=== PATIENT | female | born 1995 | race Caucasian/White ===

== ENCOUNTER → 2023-08-17 08:11 | Outpatient (CLI) | payer OTHER, SELFPAY ==
--- NOTE | 2023-08-17 | DI.MRI.S_ITS ---
PROCEDURE: MR WRIST LT W CON INDICATIONS: LEFT WRIST PAIN TECHNIQUE: After the administration of 3-4 mL of dilute intra-articular Gadolinium contrast into the radiocarpal compartment, coronal T1 spin echo with fat saturation and T2 fast spin echo with fat saturation, axial T1 spin echo and T2 fast spin echo with fat saturation, sagittal T1 spin echo with and without fat saturation through the wrist. COMPARISON: [facility], , [place] WRIST INJECTION MR/CT LT, 08/17/2023, 9:43. FINDINGS: Image quality: Excellent. Bones and cartilage: The carpal bones are normally aligned. No bone marrow contusions or fractures. No evidence for avascular necrosis. Carpal ligaments: The scapholunate and lunotriquetral ligaments appear intact, without gadolinium extravasation into the mid-carpal compartment. On sagittal images, the pisohamate ligament appears intact. Triangular fibrocartilage complex: Small amount of noncommunicating fluid is seen near the ulnar attachment of the triangular fibrocartilage, which may indicate focal partial tearing. No full-thickness triangular fibrocartilage tear is seen. No gadolinium extravasation into the distal radioulnar joint. Tendons and soft tissues: Mild extravasation of contrast material at the dorsal aspect of the wrist related to the arthrogram injection. The carpal tunnel structures appear normal, including the median nerve. The ulnar nerve appears normal within Guyon's canal. [id number] fluid within the 2nd and 3rd extensor compartments is most likely related to the arthrogram injection. All six extensor tendon compartments demonstrate normal morphology. No soft tissue ganglion cysts. IMPRESSION: 1. Focal noncommunicating fluid signal at the ulnar attachments of the triangular fibrocartilage may represent partial tearing. No full-thickness triangular fibrocartilage tear. 2. No acute trabecular bone injury. No extravasation of injected intra-articular contrast material into the distal radioulnar joint or midcarpal joint. Visualized tendons are intact. Approved by: Getachew Laureano M.D. on 08/17/2023 at 14:34
--- NOTE | 2023-08-17 | DI.RAD.S_ITS ---
PROCEDURE: [place] WRIST INJECTION MR/CT LT INDICATIONS: LEFT WRIST PAIN COMPARISON: [facility], MR, MR WRIST LT W CON, 08/17/2023, 8:59. TECHNIQUE: After informed consent had been obtained, the wrist was examined fluoroscopically, and a site chosen for injection of the radiocarpal compartment from a dorsal approach. Skin was prepped and draped in a sterile fashion and 1% lidocaine infiltrated from the skin down to the articular surface. A hypodermic needle was then introduced into the articular space and a modest amount of contrast medium was instilled confirming intra-articular needle tip placement. This was followed by approximately 4 mL of a dilute gadolinium solution. Needle was removed and dressing was applied. The patient experienced no complications throughout the procedure and left the fluoroscopic suite in no apparent distress. FINDINGS: A single fluoroscopic spot image demonstrates intra-articular location to injected iodinated contrast. IMPRESSION: Successful fluoroscopic-guided administration of dilute Gadolinium solution for wrist MR arthrogram. Dictated by: Paul Sanchez M.D. on 08/17/2023 at 11:02 Approved by: Paul Sanchez M.D. on 08/17/2023 at 11:02
[2023-08-17] MEDS: SODIUM CHLORIDE 0.9 % 20 ML VIAL IV (09:05)
== END ==
PROVIDERS: Referring Provider Orthopaedic Surgery; Visit Provider Orthopaedic Surgery
DX: M25.532 Pain in left wrist (principal)
CPT/HCPCS: 20605; 73222; 77002

== ENCOUNTER 2024-08-02 11:23 | Emergency (ER) | payer OTHER, SELFPAY ==
[2024-08-02 11:30] VITALS: BP 137/90; PULSE 83; RESP 16; TEMP 37.1; O2SAT 99; BMI 26.6
--- NOTE | 2024-08-02 11:39 | ED_ITS ---
HPI - Abdominal Pain <Alberto Aguilera PA-C - Last Filed: 08/02/24 15:36> General Chief Complaint: Abdominal Pain Stated Complaint: lower abd pain Time Seen by Provider: 08/02/24 11:38 Source: patient Mode of arrival: Ambulatory History of Present Illness HPI narrative: This is a 28-year-old female presenting to the emergency department due to right lower quadrant pain for the last 7 days. She states that initially the pain was intermittent and waxing and waning but now it is more constant moderate pain to the right lower quadrant. Denies any dysuria, urinary frequency, hematuria, vaginal discharge, nausea, fevers, vomiting, or any other concerning signs or symptoms. Has a IUD in place and very rarely has menses. No history of abdominal surgeries and no pertinent medical history. Related Data Previous Rx's Medication Instructions Recorded amoxicillin 875 mg-potassium 1 tab PO BID #28 tabs 08/02/24 clavulanate 125 mg tablet Allergies Allergy/AdvReac Type Severity Reaction Status Date / Time No Known Drug Allergies Allergy Verified 08/02/24 11:35 Review of Systems <Alberto Aguilera PA-C - Last Filed: 08/02/24 15:36> Review of Systems Narrative: GENERAL: Denies chills, fatigue, malaise, fever, sweats. HEENT: Denies sinus pain, ear pain, sore throat, difficulty swallowing, dizziness. RESPIRATORY: Denies dyspnea, cough, wheezing, hemoptysis, sputum. CARDIOVASCULAR: Denies chest pain, palpitations, orthopnea, edema, GASTROINTESTINAL: Reports right lower quadrant abdominal pain Denies nausea, vomiting, , diarrhea, constipation, melena. : Denies dysuria, frequency, incontinence, hematuria, urinary retention. MUSCULOSKELETAL: denies weakness, joint pain, or bony pain SKIN: Denies rash, skin lesions, or other NEUROLOGIC: Denies weakness, headache, numbness, change in speech, confusion, seizures, incoordination. PSYCHIATRIC: No concerning psychosocial issues. 12 point review of systems is negative except for those stated above Patient History <KORY Silverio Last Filed: 08/02/24 15:36> Social History Smoking Status: Never smoker Smoking Status: Never smoker Exam <KORY Silverio Last Filed: 08/02/24 15:36> Narrative Exam Narrative: GENERAL: Well-developed patient, in mild distress. HEAD: Atraumatic. Normocephalic. EYES: Pupils equal round and reactive. Extraocular motions intact. No scleral icterus. No injection or drainage. ENT: Nose without bleeding, purulent drainage. Throat without erythema, tonsillar hypertrophy or exudate. Airway patent. NECK: Trachea midline. Non tender EXTREMITIES: No edema or joint tenderness. NEURO: AOx3. SKIN: No rash or erythema of visible areas Abdomen: Tenderness to palpation to the right lower quadrant, no guarding, nondistended Initial Vital Signs Initial Vital Signs: Vital Signs Temperature 98.8 F 08/02/24 11:30 Pulse Rate 83 08/02/24 11:30 Respiratory Rate 16 08/02/24 11:30 Blood Pressure 137/90 08/02/24 11:30 Pulse Oximetry 99 08/02/24 11:30 Oxygen Delivery Method Room Air 08/02/24 11:30 <DO Beba May Last Filed: 08/02/24 15:53> Initial Vital Signs Initial Vital Signs: Vital Signs Temperature 98.8 F 08/02/24 11:30 Pulse Rate 83 08/02/24 11:30 Respiratory Rate 16 08/02/24 11:30 Blood Pressure 137/90 08/02/24 11:30 Pulse Oximetry 99 08/02/24 11:30 Oxygen Delivery Method Room Air 08/02/24 11:30 Course <Alberto Aguilera PA-C - Last Filed: 08/02/24 15:36> Orders Ordered: ED Orders 08/02/24 11:44 CRP [C-Reactive Protein Quant] Stat Complete Blood Count AUTO DIFF Stat Comprehensive Metabolic Panel Stat Lipase Stat 08/02/24 12:19 CT abdomen pelvis w con Stat 08/02/24 12:21 US pelvic complete Stat Discontinued Medications Ceftriaxone Sodium (Ceftriaxone 2,000 Mg Vial) 1,000 mg IM NOW ONE Stop: 08/02/24 15:30 Last Admin: 08/02/24 15:47 Dose: 1,000 mg Documented By: NIC Vital Signs Vital signs: Vital Signs - 8 hr 08/02/24 11:30 Temperature 98.8 F Pulse Rate 83 Respiratory Rate 16 Blood Pressure 137/90 Pulse Oximetry 99 Oxygen Delivery Method Room Air <DO Beba May Last Filed: 08/02/24 15:53> Orders Ordered: ED Orders 08/02/24 11:44 CRP [C-Reactive Protein Quant] Stat Complete Blood Count AUTO DIFF Stat Comprehensive Metabolic Panel Stat Lipase Stat 08/02/24 12:19 CT abdomen pelvis w con Stat 08/02/24 12:21 US pelvic complete Stat Discontinued Medications Ceftriaxone Sodium (Ceftriaxone 2,000 Mg Vial) 1,000 mg IM NOW ONE Stop: 08/02/24 15:30 Last Admin: 08/02/24 15:47 Dose: 1,000 mg Documented By: DKBridget Vital Signs Vital signs: Vital Signs - 8 hr 08/02/24 11:30 Temperature 98.8 F Pulse Rate 83 Respiratory Rate 16 Blood Pressure 137/90 Pulse Oximetry 99 Oxygen Delivery Method Room Air MDM - Abdominal Pain <Alberto Aguilera PA-C - Last Filed: 08/02/24 15:36> Lab Data 08/02/24 11:44 08/02/24 11:44 Labs: Lab Results 08/02/24 Range/Units 11:44 WBC 8.0 (4.5-11.0) X10^3/uL RBC 5.21 H (4.0-5.2) X10^6/uL Hgb 15.6 (12.0-16.0) g/dL Hct 46.6 H (36-46) % MCV 89.5 (80-100) fL MCH 29.9 (26-34) PG MCHC 33.4 (30-36) % RDW 13.2 (11.6-14.8) % Plt Count 229 (150-400) X10^3/uL Neut % (Auto) 75.0 (50-75) % Lymph % (Auto) 16.2 L (25-40) % Pitt % (Auto) 6.3 (3-14) % Eos % (Auto) 2.0 (2-4) % Baso % (Auto) 0.5 (0-2) % Neut # (Auto) 6000 (7143-0875) /uL Lymph # (Auto) 1300 (6382-5580) /uL Pitt # (Auto) 500 (0-900) /uL Eos # (Auto) 200 (0-450) /uL Baso # (Auto) 0 (0-100) /uL Sodium 137 (137-145) mmol/L Potassium 3.8 (3.4-5.1) mmol/L Chloride 107 (98-107) mmol/L Carbon Dioxide 22 (22-32) mmol/L BUN 11 (7-17) mg/dL Creatinine 0.71 (0.52-1.04) mg/dL Estimated GFR > 60 (>60) mL/min BUN/Creatinine Ratio 15.5 (6-22) Glucose 93 (70-100) mg/dL Calcium 9.4 (8.4-10.2) mg/dL Total Bilirubin 0.7 (0.2-1.3) mg/dL AST 28 (14-36) IU/L ALT 24 (<35) IU/L Alkaline Phosphatase 54 (38-126) U/L C-Reactive Protein < 0.5 (<1.0) mg/dL Total Protein 7.3 (6.3-8.2) g/dL Albumin 4.5 (3.5-5.0) g/dL Globulin 2.8 (1.7-4.1) g/dL Albumin/Globulin Ratio 1.6 (1.0-2.8) Lipase 38 (23-300) U/L Point of care testing: Point of Care Testing Test Results Negative Urine Dip Bedside Urine Glucose Negative Bedside Urine Bilirubin - Negative Bedside Urine Ketone + 15 Urine Specific [place] 1.025 Bedside Urine Occult Blood - Negative Bedside Urine pH 6.0 Bedside Urine Protein - Negative Bedside Urine Urobilinogen - Negative Bedside Urine Nitrite - Negative Bedside Urine Leukocytes - Negative Esterase Imaging Data CT scan - abdomen/pelvis: Radiologist's Impression: [place] [address] CT Scan Report Signed Patient: Veronika Harris MR#: [id number] : 1995 Acct:[id number] Age/Sex: 28 / F Date of Service: 08/02/24 Loc: ED Accession Number: [id number] Procedure: CT abdomen pelvis w con Ordering Provider: Alberto Aguilera PA-C PROCEDURE: CT ABDOMEN PELVIS W CON INDICATIONS: RLQ pain TECHNIQUE: After the administration of intravenous contrast, axial sections acquired from the lung bases to the pubic symphysis. Coronal and sagittal reformats were performed. For radiation dose reduction, the following was used: automated exposure control, adjustment of mA and/or kV according to patient size. COMPARISON: [facility], , [place] PELVIC COMPLETE, 08/02/2024, 12:00. FINDINGS: Image quality: Diagnostic. Lower Chest: No significant findings. ABDOMEN: Liver: No solid mass. Gallbladder: No radiopaque gallstones or wall thickening. Biliary ducts: No biliary dilation. Pancreas: No ductal dilation. Spleen: Size is within normal limits. Adrenal Glands: No adrenal nodules. Kidneys and Ureters: No hydronephrosis. No solid mass. No complex renal cystic lesion which requires follow up. Stomach and Bowel: Normal colonic caliber, without significant wall thickening. Borderline predominantly fluid appendix with tiny air present near its entrance into the cecum. It measures up to 7.6 mm, but is predominantly under 6 mm. This may potentially represent very earliest findings of acute appendicitis, or may be a normal appendix. Peritoneum: No abnormal intraperitoneal fluid. No free air. Ventral Wall: No significant ventral hernia. Abdominal Nodes: No retroperitoneal or mesenteric adenopathy by size criteria. Vessels: Aorta and inferior vena cava are normal in size. PELVIS: Pelvic Organs: IUD. Mild to moderate pelvic ascites. This is greater than physiologic. On the ultrasound from the same date, the fluid was noted to have internal echoes. The fluid is minimally dense by Hounsfield measurements, measuring 22.6 Hounsfield units posteriorly, potentially indicating a small amount of hemorrhage within the fluid. Adnexae are unremarkable. Bladder: No bladder wall thickening, accounting for underdistention. Pelvic Nodes: No enlarged lymph nodes. Miscellaneous: No inguinal hernias are seen. Bones: No aggressive osseous abnormality. IMPRESSION: 1. The appendix may potentially demonstrate very early signs of acute appendicitis. Or, it may simply be a uninflamed appendix with predominantly fluid. 2. Greater than expected fluid in the pelvis, potentially representing evidence of ruptured ovarian cyst hemorrhage. There is debris within the fluid. Density is at the upper limits of normal for water density. 3. IUD. Comment: Findings were discussed with TOM Silverio, the ordering clinician, on 08/02/2024 at 1415 hours. Consider follow-up CT examination if symptoms progress. US - PHOTOCOPIER TECHNICIAN: Radiologist's Impression: [address] [address] Ultrasound Report Signed Patient: Veronika Harris MR#: [id number] : 1995 Acct:[id number] Age/Sex: 28 / F Date of Service: 08/02/24 Loc: ED Accession Number: [id number] Procedure: US pelvic complete Ordering Provider: Alberto Aguilera PA-C PROCEDURE: US PELVIC COMPLETE INDICATIONS: RIGHT PELVIC PAIN TECHNIQUE: Real-time scanning was performed of the pelvic organs, with image documentation. Additional endovaginal scanning was necessary due to incomplete visualization of the adnexal and endometrial structures by transabdominal scanning. COMPARISON: None. FINDINGS: Uterus: Uterus is anteverted and normal in size at 8.1 x 3.3 x 5.1 cm. The myometrium is homogeneous. The endometrium measures 4.3 mm combined thickness. IUD in satisfactory position Ovaries: The right ovary measures 4.2 x 4.1 x 1.8 cm, with a calculated ovarian volume of 15.9 cc. The left ovary measures 2.3 x 2.0 x 1.8 cm, with a calculated ovarian volume of 4.3 cc. The ovaries have a normal sonographic appearance. Less than 12 follicles can be seen in each ovary. No adnexal masses are seen. There is normal duplex intra-ovarian flow bilaterally. Other: There is greater than physiologic fluid present in the cul-de-sac with internal echoes present within a likely representing products of hemorrhage, suggestion possible recent rupture of an ovarian cyst. IMPRESSION: Greater than physiologic pelvic fluid with internal echoes suggests possible hemorrhage from a ruptured ovarian cyst. Ovaries are unremarkable. IUD in satisfactory position. We strive to produce accurate, complete, and clear reports of imaging services. To assist us in improving patient care, this report was composed using standard report templates and voice recognition software. Therefore, it may contain abnormal punctuation, insertions and/or omissions. Occasional wrong-word or sound-alike substitutions may occur. Though we review the report and make efforts to correct it, we do recommend that the report be read carefully in proper context to recognize any text inaccuracies. Dictated by: Deandre Goddard M.D. on 08/02/2024 at 13:50 Approved by: Deandre Goddard M.D. on 08/02/2024 at 14:03 [facility] Narrative Medical decision making narrative: ED course: This is a 20-year-old female presenting to the emergency department due to right lower quadrant pain. Imaging showed a ruptured ovarian cyst as well as possible early appendicitis. This was discussed with the on-call general surgeon, Dr. Bowie, who evaluated the patient and recommended Rocephin IM as well as 2 weeks of oral Augmentin, 875 b.i.d.. Lab work otherwise reassuring. CC: Right lower quadrant pain Complicating co-morbidities: None Data collected from: Previous notes Medical records reviewed: Patient was not been to this emergency department in the past. Differential considered, but not limited to: Appendicitis, ovarian torsion, ovarian cyst Exam documented above, pertinent findings include: Tenderness to palpation to the right lower quadrant otherwise well-appearing Lab Test results independently reviewed as above. Pertinent findings: Lab work unremarkable, no white count, CRP within normal limits Imaging studies independently reviewed: CT showed ruptured ovarian cyst as well as possible early appendicitis Scores Used: None MIPS Elements: None Consultations: None Treatments: 1 g of Rocephin IM Re-evaluations: None Discussion: Discussed plan with the patient was comfortable with the plan Diagnosis: Appendicitis, ruptured ovarian cyst Disposition: see below, along with detailed discharge instructions that have been reviewed with patient as well as indications for ED re-evaluation and additional outpatient follow up <Vinod Castro DO - Last Filed: 08/02/24 15:53> Lab Data Labs: Lab Results 08/02/24 Range/Units 11:44 WBC 8.0 (4.5-11.0) X10^3/uL RBC 5.21 H (4.0-5.2) X10^6/uL Hgb 15.6 (12.0-16.0) g/dL Hct 46.6 H (36-46) % MCV 89.5 (80-100) fL MCH 29.9 (26-34) PG MCHC 33.4 (30-36) % RDW 13.2 (11.6-14.8) % Plt Count 229 (150-400) X10^3/uL Neut % (Auto) 75.0 (50-75) % Lymph % (Auto) 16.2 L (25-40) % Pitt % (Auto) 6.3 (3-14) % Eos % (Auto) 2.0 (2-4) % Baso % (Auto) 0.5 (0-2) % Neut # (Auto) 6000 (1719-5971) /uL Lymph # (Auto) 1300 (4323-6645) /uL Pitt # (Auto) 500 (0-900) /uL Eos # (Auto) 200 (0-450) /uL Baso # (Auto) 0 (0-100) /uL Sodium 137 (137-145) mmol/L Potassium 3.8 (3.4-5.1) mmol/L Chloride 107 (98-107) mmol/L Carbon Dioxide 22 (22-32) mmol/L BUN 11 (7-17) mg/dL Creatinine 0.71 (0.52-1.04) mg/dL Estimated GFR > 60 (>60) mL/min BUN/Creatinine Ratio 15.5 (6-22) Glucose 93 (70-100) mg/dL Calcium 9.4 (8.4-10.2) mg/dL Total Bilirubin 0.7 (0.2-1.3) mg/dL AST 28 (14-36) IU/L ALT 24 (<35) IU/L Alkaline Phosphatase 54 (38-126) U/L C-Reactive Protein < 0.5 (<1.0) mg/dL Total Protein 7.3 (6.3-8.2) g/dL Albumin 4.5 (3.5-5.0) g/dL Globulin 2.8 (1.7-4.1) g/dL Albumin/Globulin Ratio 1.6 (1.0-2.8) Lipase 38 (23-300) U/L Point of care testing: Point of Care Testing Test Results Negative Urine Dip Bedside Urine Glucose Negative Bedside Urine Bilirubin - Negative Bedside Urine Ketone + 15 Urine Specific [place] 1.025 Bedside Urine Occult Blood - Negative Bedside Urine pH 6.0 Bedside Urine Protein - Negative Bedside Urine Urobilinogen - Negative Bedside Urine Nitrite - Negative Bedside Urine Leukocytes - Negative Esterase Discharge Plan Departure Patient Disposition: Home Clinical Impression: Acute appendicitis, Ovarian cyst rupture Instructions: DI for Appendicitis -- Adult Activity Restrictions/Additional Instructions: Thank you for coming to the [facility] Emergency Department today. As we discussed please take the oral antibiotics as prescribed for the early appendicitis. You also noted to have a ruptured ovarian cyst which should improve over time. I sent the medication to [facility] in [place]. Please return to the emergency department if you develop any worsening abdominal pain, fevers, or any other concerning signs or symptoms. I hope you feel better soon. Please follow up with your primary care provider within a week if your symptoms continue. If you do not have a primary care provider please contact the [facility] Resource line at [phone]. They will ask some questions about your medical history and help you get set up with a provider in the community. Prescriptions: New amoxicillin-pot clavulanate 875-125 mg tablet 1 tab PO BID Qty: 28 0RF Stand Alone Forms: Patient Portal/API/Survey ED Sign-out <Vinod Castro, DO - Last Filed: 08/02/24 15:53> Cosign ED Attending Cosignature Attestation: Dr Castro Co-Sign Statement: I was available for consultation during this patient's emergency department visit. This chart is signed by myself for administrative purposes only. I did not have direct contact with this patient during this visit. They were seen independently by the APC.
[2024-08-02 12:01] LABS: Add Manual Diff / Slide Review NO; Basophils Absolute Auto 0 /uL (0-100); Basophils Percent Auto 0.5 % (0-2); Eosinophils Absolute Auto 200 /uL (0-450); Hematocrit 46.6 % (36-46); Hemoglobin 15.6 g/dL (12.0-16.0); Lymphocytes Absolute Auto 1300 /uL (1100-4500); Lymphocytes Percent Auto 16.2 % (25-40); Mean Corpuscular HGB Conc 33.4 % (30-36); Mean Corpuscular Hemoglobin 29.9 PG (26-34); Mean Corpuscular Volume 89.5 fL (80-100); Monocytes Absolute Auto 500 /uL (0-900); Monocytes Percent Auto 6.3 % (3-14); Neutrophils Absolute Auto 6000 /uL (1500-7000); Platelet Count 229 X10^3/uL (150-400); Red Blood Cell Count 5.21 X10^6/uL (4.0-5.2); Red Cell Distribution Width 13.2 % (11.6-14.8)
[2024-08-02 12:08] LABS: Alanine Aminotransferase 24 IU/L (<35); Albumin 4.5 g/dL (3.5-5.0); Albumin Globulin Ratio 1.6 (1.0-2.8); Alkaline Phosphatase 54 U/L (38-126); Aspartate Aminotransferase 28 IU/L (14-36); BUN Creatinine Ratio 15.5 (6-22); Bilirubin Total 0.7 mg/dL (0.2-1.3); Blood Urea Nitrogen 11 mg/dL (7-17); Calcium 9.4 mg/dL (8.4-10.2); Carbon Dioxide 22 mmol/L (22-32); Chloride 107 mmol/L (98-107); Estimated Glomerular Filt Rate > 60 mL/min (>60); Globulin 2.8 g/dL (1.7-4.1); Glucose 93 mg/dL (70-100); HEMOLYSIS < 15 (0-50); Lipase 38 U/L (23-300); Potassium 3.8 mmol/L (3.4-5.1); Sodium 137 mmol/L (137-145); Total Protein 7.3 g/dL (6.3-8.2)
--- NOTE | 2024-08-02 12:19 | DI.CT.S_ITS ---
PROCEDURE: CT ABDOMEN PELVIS W CON INDICATIONS: RLQ pain TECHNIQUE: After the administration of intravenous contrast, axial sections acquired from the lung bases to the pubic symphysis. Coronal and sagittal reformats were performed. For radiation dose reduction, the following was used: automated exposure control, adjustment of mA and/or kV according to patient size. COMPARISON: [facility], , US PELVIC COMPLETE, 08/02/2024, 12:00. FINDINGS: Image quality: Diagnostic. Lower Chest: No significant findings. ABDOMEN: Liver: No solid mass. Gallbladder: No radiopaque gallstones or wall thickening. Biliary ducts: No biliary dilation. Pancreas: No ductal dilation. Spleen: Size is within normal limits. Adrenal Glands: No adrenal nodules. Kidneys and Ureters: No hydronephrosis. No solid mass. No complex renal cystic lesion which requires follow up. Stomach and Bowel: Normal colonic caliber, without significant wall thickening. Borderline predominantly fluid appendix with tiny air present near its entrance into the cecum. It measures up to 7.6 mm, but is predominantly under 6 mm. This may potentially represent very earliest findings of acute appendicitis, or may be a normal appendix. Peritoneum: No abnormal intraperitoneal fluid. No free air. Ventral Wall: No significant ventral hernia. Abdominal Nodes: No retroperitoneal or mesenteric adenopathy by size criteria. Vessels: Aorta and inferior vena cava are normal in size. PELVIS: Pelvic Organs: IUD. Mild to moderate pelvic ascites. This is greater than physiologic. On the ultrasound from the same date, the fluid was noted to have internal echoes. The fluid is minimally dense by Hounsfield measurements, measuring 22.6 Hounsfield units posteriorly, potentially indicating a small amount of hemorrhage within the fluid. Adnexae are unremarkable. Bladder: No bladder wall thickening, accounting for underdistention. Pelvic Nodes: No enlarged lymph nodes. Miscellaneous: No inguinal hernias are seen. Bones: No aggressive osseous abnormality. IMPRESSION: 1. The appendix may potentially demonstrate very early signs of acute appendicitis. Or, it may simply be a uninflamed appendix with predominantly fluid. 2. Greater than expected fluid in the pelvis, potentially representing evidence of ruptured ovarian cyst hemorrhage. There is debris within the fluid. Density is at the upper limits of normal for water density. 3. IUD. Comment: Findings were discussed with TOM Silverio, the ordering clinician, on 08/02/2024 at 1415 hours. Consider follow-up CT examination if symptoms progress. Dictated by: Deandre Goddard M.D. on 08/02/2024 at 14:09 Approved by: Deandre Goddard M.D. on 08/02/2024 at 14:24
--- NOTE | 2024-08-02 12:21 | DI.US.S_ITS ---
PROCEDURE: US PELVIC COMPLETE INDICATIONS: RIGHT PELVIC PAIN TECHNIQUE: Real-time scanning was performed of the pelvic organs, with image documentation. Additional endovaginal scanning was necessary due to incomplete visualization of the adnexal and endometrial structures by transabdominal scanning. COMPARISON: None. FINDINGS: Uterus: Uterus is anteverted and normal in size at 8.1 x 3.3 x 5.1 cm. The myometrium is homogeneous. The endometrium measures 4.3 mm combined thickness. IUD in satisfactory position Ovaries: The right ovary measures 4.2 x 4.1 x 1.8 cm, with a calculated ovarian volume of 15.9 cc. The left ovary measures 2.3 x 2.0 x 1.8 cm, with a calculated ovarian volume of 4.3 cc. The ovaries have a normal sonographic appearance. Less than 12 follicles can be seen in each ovary. No adnexal masses are seen. There is normal duplex intra-ovarian flow bilaterally. Other: There is greater than physiologic fluid present in the cul-de-sac with internal echoes present within a likely representing products of hemorrhage, suggestion possible recent rupture of an ovarian cyst. IMPRESSION: Greater than physiologic pelvic fluid with internal echoes suggests possible hemorrhage from a ruptured ovarian cyst. Ovaries are unremarkable. IUD in satisfactory position. We strive to produce accurate, complete, and clear reports of imaging services. To assist us in improving patient care, this report was composed using standard report templates and voice recognition software. Therefore, it may contain abnormal punctuation, insertions and/or omissions. Occasional wrong-word or sound-alike substitutions may occur. Though we review the report and make efforts to correct it, we do recommend that the report be read carefully in proper context to recognize any text inaccuracies. Dictated by: Deandre Goddard M.D. on 08/02/2024 at 13:50 Approved by: Deandre Goddard M.D. on 08/02/2024 at 14:03
[2024-08-02 14:36] LABS: C-Reactive Protein Quant < 0.5 mg/dL (<1.0)
[2024-08-02] MEDS: cefTRIAXone 2,000 MG VIAL 1000 MG IM (15:47)
[2024-08-02 15:51] VITALS: BP 124/79; PULSE 70; RESP 18; O2SAT 100
== END 2024-08-02 15:53 | disposition home or self-care (01) ==
PROVIDERS: Emergency Provider Physician Assistant Medical
DX: K35.80 Unspecified acute appendicitis (principal); N83.299 Other ovarian cyst, unspecified side
CPT/HCPCS: 74177; 76830; 76856; 80053; 81003; 81025; 83690; 85025; 86140; 93975; 96372; 99284; 99285; J0696; Q9967

== ENCOUNTER 2024-08-04 13:23 | Observation (INO) | payer OTHER, SELFPAY ==
[2024-08-04] VITALS (8 sets, daily range): BP systolic 108–129; BP diastolic 53–89; PULSE 59–79; RESP 16–18; TEMP 36.4–36.8; O2SAT 98–100; BMI 26.6
[2024-08-04 13:59] LABS: Add Manual Diff / Slide Review NO; Basophils Absolute Auto 0 /uL (0-100); Basophils Percent Auto 0.7 % (0-2); Eosinophils Absolute Auto 100 /uL (0-450); Eosinophils Percent Auto 2.5 % (2-4); Hematocrit 44.6 % (36-46); Hemoglobin 14.7 g/dL (12.0-16.0); Lymphocytes Absolute Auto 1300 /uL (1100-4500); Lymphocytes Percent Auto 22.3 % (25-40); Mean Corpuscular HGB Conc 32.9 % (30-36); Mean Corpuscular Hemoglobin 29.4 PG (26-34); Mean Corpuscular Volume 89.3 fL (80-100); Monocytes Absolute Auto 400 /uL (0-900); Monocytes Percent Auto 6.5 % (3-14); Neutrophils Absolute Auto 4000 /uL (1500-7000); Platelet Count 222 X10^3/uL (150-400); Red Blood Cell Count 4.99 X10^6/uL (4.0-5.2); Red Cell Distribution Width 13.7 % (11.6-14.8); White Blood Cell Count 5.9 X10^3/uL (4.5-11.0)
[2024-08-04 14:11] LABS: Alanine Aminotransferase 21 IU/L (<35); Albumin 4.4 g/dL (3.5-5.0); Albumin Globulin Ratio 1.6 (1.0-2.8); Alkaline Phosphatase 50 U/L (38-126); Aspartate Aminotransferase 31 IU/L (14-36); BUN Creatinine Ratio 16.4 (6-22); Bilirubin Total 0.4 mg/dL (0.2-1.3); Blood Urea Nitrogen 12 mg/dL (7-17); Calcium 9.2 mg/dL (8.4-10.2); Carbon Dioxide 23 mmol/L (22-32); Chloride 109 mmol/L (98-107); Estimated Glomerular Filt Rate > 60 mL/min (>60); Globulin 2.7 g/dL (1.7-4.1); Glucose 92 mg/dL (70-100); HEMOLYSIS 17 (0-50); Lipase 41 U/L (23-300); Sodium 139 mmol/L (137-145); Total Protein 7.1 g/dL (6.3-8.2)
--- NOTE | 2024-08-04 15:08 | ED.ABDPAIN ---
HPI - Abdominal Pain General Chief Complaint: Abdominal Pain Stated Complaint: Symptoms getting worse from last ER visit Time Seen by Provider: 08/04/24 15:08 Source: patient Mode of arrival: Ambulatory History of Present Illness HPI narrative: 28-year-old female reports right lower quadrant pain, seen here 2 days ago she reports with imaging studies ultrasound and CT scan, believes that she has a ruptured ovarian cyst on the right side and also appendicitis, was discharged on oral Augmentin, feels that her pain is increasing despite antibiotics. No nausea or vomiting. She has had intermittent loose stools, no black or red stools. No injury or trauma. No vaginal bleeding. Related Data Previous Rx's Medication Instructions Recorded amoxicillin 875 mg-potassium 1 tab PO BID #28 tabs 08/02/24 clavulanate 125 mg tablet Allergies Allergy/AdvReac Type Severity Reaction Status Date / Time No Known Drug Allergies Allergy Verified 08/02/24 11:35 Patient History Social History household members: spouse Smoking Status: Never smoker Smoking Status: Never smoker Exam Narrative Exam Narrative: GENERAL: Well-developed patient, in mild distress. HEAD: Atraumatic. Normocephalic. EYES: Pupils equal round and reactive. Extraocular motions intact. No scleral icterus. No injection or drainage. ENT: Nose without bleeding, purulent drainage. Throat without erythema, tonsillar hypertrophy or exudate. Airway patent. NECK: Trachea midline. Non tender CARDIOVASCULAR: Regular rate and rhythm without murmurs, gallops, or rubs. RESPIRATORY: Clear to auscultation. Breath sounds equal bilaterally. No wheezes, rales, or rhonchi. GASTROINTESTINAL: Right lower quadrant tenderness, no guarding or rebound, bowel tones unremarkable, nondistended EXTREMITIES: No edema or joint tenderness. BACK: Nontender without deformity or crepitance. No flank tenderness. NEURO: AOx3. Motor functions grossly nonfocal SKIN: No rash or erythema of visible areas Initial Vital Signs Initial Vital Signs: Vital Signs Temperature 98.3 F 08/04/24 13:26 Pulse Rate 74 08/04/24 13:26 Respiratory Rate 16 08/04/24 13:26 Blood Pressure 129/89 08/04/24 13:26 Pulse Oximetry 100 08/04/24 13:26 Oxygen Delivery Method Room Air 08/04/24 13:26 Course Orders Ordered: ED Orders 08/04/24 13:47 Complete Blood Count AUTO DIFF Stat Comprehensive Metabolic Panel Stat HCG Quantitative /Beta subunit Stat Lipase Stat 08/04/24 15:45 CT abdomen pelvis w con Stat 08/04/24 17:34 Education, smoking cessation ONGOING Acetaminophen (Acetaminophen 325 Mg Tablet) 650 mg PO Q6H [facility] Last Admin: 08/04/24 18:31 Dose: 650 mg Documented By: EVETTE Al Hydrox/Mg Hydrox/Simethicone (Mag Hydrox/Alum/Simeth 30 Ml Udc) 30 ml PO Q6HR PRN PRN Reason: Dyspepsia Bisacodyl (Bisacodyl 5 Mg Tablet) 10 mg PO DAILY PRN PRN Reason: Constipation Calcium Carbonate (Calcium Carbonate 500 Mg Tab) 1,000 mg PO Q4HR PRN PRN Reason: Dyspepsia Heparin Sodium (Porcine) (Heparin 5,000 Unit/Ml Vial) 5,000 unit SUBCUT BID [facility] Last Admin: 08/04/24 20:54 Dose: Not Given Documented By: CARLYN Piperacillin Sod/Tazobactam (Sod 3.375 gm/ Sodium Chloride) 100 mls @ 25 mls/hr IV Q8H [facility] Last Admin: 08/04/24 20:47 Dose: 25 mls/hr Documented By: CARLYN Ibuprofen (Ibuprofen 400 Mg Tablet) 400 mg PO Q4H [facility] Last Admin: 08/04/24 20:29 Dose: Not Given Documented By: Admin: 08/04/24 18:30 Dose: 400 mg Documented By: EVETTE Magnesium Hydroxide (Magnesium Hydroxide 30 Ml Udc) 30 ml PO DAILY PRN PRN Reason: Constipation Morphine Sulfate (Morphine 4 Mg/Ml Inj) 3 mg IV Q2HR [facility] Last Admin: 08/04/24 20:53 Dose: Not Given Documented By: Admin: 08/04/24 19:02 Dose: Not Given Documented By: EVETTE Naloxone HCl (Naloxone 0.4 Mg/Ml Vial) 0.2 mg IV Q2MIN PRN PRN Reason: Opiate Reversal Ondansetron HCl (Ondansetron 4 Mg/2 Ml Inj) 4 mg IV NOW PRN PRN Reason: Nausea And Vomiting Ondansetron HCl (Ondansetron 4 Mg Odt) 4 mg PO NOW PRN PRN Reason: Nausea And Vomiting Ondansetron HCl (Ondansetron 4 Mg Odt) 4 mg PO Q8HR PRN PRN Reason: Nausea And Vomiting Oxycodone HCl (Oxycodone Ir 5 Mg Tablet) 5 mg PO Q3H PRN PRN Reason: Pain, Moderate (4-6) Oxycodone HCl (Oxycodone Ir 10 Mg Tablet) 10 mg PO Q3H PRN PRN Reason: Pain, Severe (7-10) Pantoprazole Sodium (Pantoprazole Dr 20 Mg Tablet) 20 mg PO 0600 [facility] Discontinued Medications Sodium Chloride (Normal Saline 0.9%) 1,000 mls @ 1,000 mls/hr IV BOLUS ONE Stop: 08/04/24 16:45 Last Infusion: 08/04/24 17:23 Dose: Infused Documented By: Admin: 08/04/24 15:59 Dose: 1,000 mls/hr Documented By: BRE Piperacillin Sod/Tazobactam (Sod 4.5 gm/ Sodium Chloride) 100 mls @ 200 mls/hr IV NOW ONE Stop: 08/04/24 17:33 Last Admin: 08/04/24 17:51 Dose: 200 mls/hr Documented By: BRE Vital Signs Vital signs: Vital Signs - 8 hr 08/04/24 13:26 08/04/24 16:08 08/04/24 16:08 Temperature 98.3 F Pulse Rate 74 63 Respiratory Rate 16 Blood Pressure 129/89 125/79 Pulse Oximetry 100 100 Oxygen Delivery Method Room Air 08/04/24 16:30 08/04/24 16:30 08/04/24 17:00 Temperature Pulse Rate 79 76 Respiratory Rate Blood Pressure 108/80 Pulse Oximetry 99 100 Oxygen Delivery Method 08/04/24 17:00 08/04/24 17:30 08/04/24 17:30 Temperature Pulse Rate 75 Respiratory Rate Blood Pressure 123/67 119/74 Pulse Oximetry 100 Oxygen Delivery Method MDM - Abdominal Pain Lab Data Attestation: I reviewed the patient's lab results. Lab results narrative: White blood cell count 5900, hemoglobin 14.7, platelets [id number]. Basic metabolic panel unremarkable. Liver functions unremarkable, lipase negative. HCG negative. 08/04/24 13:47 08/04/24 13:47 Labs: Lab Results 08/04/24 Range/Units 13:47 WBC 5.9 (4.5-11.0) X10^3/uL RBC 4.99 (4.0-5.2) X10^6/uL Hgb 14.7 (12.0-16.0) g/dL Hct 44.6 (36-46) % MCV 89.3 (80-100) fL MCH 29.4 (26-34) PG MCHC 32.9 (30-36) % RDW 13.7 (11.6-14.8) % Plt Count 222 (150-400) X10^3/uL Neut % (Auto) 68.0 (50-75) % Lymph % (Auto) 22.3 L (25-40) % [place] % (Auto) 6.5 (3-14) % Eos % (Auto) 2.5 (2-4) % Baso % (Auto) 0.7 (0-2) % Neut # (Auto) 4000 (4305-6560) /uL Lymph # (Auto) 1300 (2497-7900) /uL [place] # (Auto) 400 (0-900) /uL Eos # (Auto) 100 (0-450) /uL Baso # (Auto) 0 (0-100) /uL Sodium 139 (137-145) mmol/L Potassium 4.0 (3.4-5.1) mmol/L Chloride 109 H (98-107) mmol/L Carbon Dioxide 23 (22-32) mmol/L BUN 12 (7-17) mg/dL Creatinine 0.73 (0.52-1.04) mg/dL Estimated GFR > 60 (>60) mL/min BUN/Creatinine Ratio 16.4 (6-22) Glucose 92 (70-100) mg/dL Calcium 9.2 (8.4-10.2) mg/dL Total Bilirubin 0.4 (0.2-1.3) mg/dL AST 31 (14-36) IU/L ALT 21 (<35) IU/L Alkaline Phosphatase 50 (38-126) U/L Total Protein 7.1 (6.3-8.2) g/dL Albumin 4.4 (3.5-5.0) g/dL Globulin 2.7 (1.7-4.1) g/dL Albumin/Globulin Ratio 1.6 (1.0-2.8) Lipase 41 (23-300) U/L HCG, Quant < 2.39 mIU/mL Imaging Data CT scan - abdomen/pelvis: Radiologist's Impression: [address] [address] [address] Scan Report Signed Patient: Veronika Harris MR#: [id number] : 1995 Acct:[id number] Age/Sex: 28 / F Date of Service: 08/04/24 Loc: ED Accession Number: [id number] Procedure: CT abdomen pelvis w con Ordering Provider: Jin Cheney MD PROCEDURE: CT ABDOMEN PELVIS W CON INDICATIONS: Right lower quadrant pain, recent diagnosis appendicitis TECHNIQUE: After the administration of intravenous contrast, axial sections acquired from the lung bases to the pubic symphysis. Coronal and sagittal reformats were performed. For radiation dose reduction, the following was used: automated exposure control, adjustment of mA and/or kV according to patient size. COMPARISON: [facility], CT, CT ABDOMEN PELVIS W CON, 08/02/2024, 12:46. FINDINGS: Image quality: Diagnostic. Lower Chest: No significant findings. ABDOMEN: Liver: No solid mass. Gallbladder: There is a layering gallstone seen. No additional CT findings of cholecystitis are seen. Biliary ducts: No biliary dilation. Pancreas: No ductal dilation. Spleen: Size is within normal limits. Adrenal Glands: No adrenal nodules. Kidneys and Ureters: No hydronephrosis. No solid mass. No complex renal cystic lesion which requires follow up. Bowel and peritoneum: In this patient with this given history, scrutiny is given to the appendix. The appendix demonstrates a mildly abnormal appearance, with a maximum caliber 8 mm and minimal surrounding inflammatory change. The appearance is similar to the prior examination. Findings of perforation or abscess can be seen. No dilated loops of small bowel are seen. Liquid stool can be seen within the colon, including distally. Ventral Wall: No significant ventral hernia. Abdominal Nodes: No retroperitoneal or mesenteric adenopathy by size criteria. Vessels: Aorta and inferior vena cava are normal in size. PELVIS: Pelvic Organs: The IUD is seen at its expected location. Bladder: No bladder wall thickening, accounting for underdistention. Pelvic Nodes: No enlarged lymph nodes. Miscellaneous: No inguinal hernias are seen. Bones: No aggressive osseous abnormality. IMPRESSION: A mildly abnormal appendix is seen, with a maximum caliber of 8 mm and surrounding inflammatory change. (The normal caliber of the appendix is considered to be up to 6 mm). No findings of perforation or abscess are seen. There is liquid stool seen within the colon, including distally. Please correlate with clinical diarrhea. Additional findings: Gallstone IUD Dictated by: Stalin Guillen M.D. on 08/04/2024 at 15:34 Approved by: Stalin Guillen M.D. on 08/04/2024 at 15:38 [facility] Narrative Medical decision making narrative: 28-year-old female with recent diagnosis of right-sided ruptured ovarian cyst and also suspected appendicitis per her report, from ED visit 2 days ago here, taking oral Augmentin antibiotic, increasing pain. Afebrile, sirs screen negative on triage vitals. Some tenderness to right lower quadrant, nondistended. Labs pending. Labs reassuring, white blood cell count not elevated. Some tenderness right lower quadrant. We discussed options that might include further observation on oral antibiotic for a longer period of time, however she feels like she is worsening, consider imaging now. CT abdomen and pelvis ordered. She declined pain medications when offered. CT abdomen and pelvis. Impressions: ?A mildly abnormal appendix is seen, with maximal caliber 8 mm and surrounding inflammatory change. The normal caliber of the appendix is considered to be up to 6 mm. No findings of perforation or abscess or seen. There is liquid stool seen in the colon including distally. Please correlate with clinical diarrhea.? See radiology report Case discussed with surgery Dr. Bowie, who would like to see if patient is interested in surgery. Case and CT findings discussed with patient, who apparently had consulted with family member in the medical field, and she decided that she would like to proceed with appendectomy surgery. Call back with Dr. Bowie, we will admit to his service, IV Zosyn initial dose given here, NPO. Likely surgery in the morning with OR crew available at that time. Critical Care Time Critical Care Time Critical Care Time: Yes Total Critical Care Time: 35 Attestation: The high probability of a clinically significant, sudden or life threatening deterioration of the [gastrointestinal, abdominopelvic] system(s) required my full and direct attention, intervention and personal management. The aggregate critical care time was [35] minutes. This time is in addition to time spent performing reported procedures but includes the following: [x] Data Review and interpretation [x] Patient assessment and monitoring of vital signs [x] Documentation [x] Medication orders and management Discharge Plan Departure Patient Disposition: Admitted as Observation Clinical Impression: Acute appendicitis Qualifiers: Acute appendicitis type: unspecified acute appendicitis type Qualified Code(s): K35.80 - Unspecified acute appendicitis Admit Date/Time: 08/04/24 17:34 Admit Provider: Vikas Bowie
[2024-08-04 15:44] LABS: HCG Quantitative /Beta subunit < 2.39 mIU/mL
--- NOTE | 2024-08-04 15:45 | DI.CT.S_ITS ---
PROCEDURE: CT ABDOMEN PELVIS W CON INDICATIONS: Right lower quadrant pain, recent diagnosis appendicitis TECHNIQUE: After the administration of intravenous contrast, axial sections acquired from the lung bases to the pubic symphysis. Coronal and sagittal reformats were performed. For radiation dose reduction, the following was used: automated exposure control, adjustment of mA and/or kV according to patient size. COMPARISON: [facility], CT, CT ABDOMEN PELVIS W CON, 08/02/2024, 12:46. FINDINGS: Image quality: Diagnostic. Lower Chest: No significant findings. ABDOMEN: Liver: No solid mass. Gallbladder: There is a layering gallstone seen. No additional CT findings of cholecystitis are seen. Biliary ducts: No biliary dilation. Pancreas: No ductal dilation. Spleen: Size is within normal limits. Adrenal Glands: No adrenal nodules. Kidneys and Ureters: No hydronephrosis. No solid mass. No complex renal cystic lesion which requires follow up. Bowel and peritoneum: In this patient with this given history, scrutiny is given to the appendix. The appendix demonstrates a mildly abnormal appearance, with a maximum caliber 8 mm and minimal surrounding inflammatory change. The appearance is similar to the prior examination. Findings of perforation or abscess can be seen. No dilated loops of small bowel are seen. Liquid stool can be seen within the colon, including distally. Ventral Wall: No significant ventral hernia. Abdominal Nodes: No retroperitoneal or mesenteric adenopathy by size criteria. Vessels: Aorta and inferior vena cava are normal in size. PELVIS: Pelvic Organs: The IUD is seen at its expected location. Bladder: No bladder wall thickening, accounting for underdistention. Pelvic Nodes: No enlarged lymph nodes. Miscellaneous: No inguinal hernias are seen. Bones: No aggressive osseous abnormality. IMPRESSION: A mildly abnormal appendix is seen, with a maximum caliber of 8 mm and surrounding inflammatory change. (The normal caliber of the appendix is considered to be up to 6 mm). No findings of perforation or abscess are seen. There is liquid stool seen within the colon, including distally. Please correlate with clinical diarrhea. Additional findings: Gallstone IUD Dictated by: Stalin Guillen M.D. on 08/04/2024 at 15:34 Approved by: Stalin Guillen M.D. on 08/04/2024 at 15:38
[2024-08-04] MEDS: SODIUM CHLORIDE 0.9% 1,000 ML 1000 ML IV (15:59)
[2024-08-04] MEDS: PIPERACILLIN/TAZO 4.5 GM in SODIUM CHLORIDE 0.9% 100 ML IV (17:51)
[2024-08-04] MEDS: IBUPROFEN 400 MG TABLET PO (18:30)
[2024-08-04] MEDS: ACETAMINOPHEN 325 MG TABLET 650 MG PO (18:31)
--- NOTE | 2024-08-04 19:08 | PM.HP.1 ---
History of Present Illness History of Present Illness Date Patient Seen: 08/04/24 Time Patient Seen: 19:08 Date of Onset of Symptoms: 08/01/24 Chief complaint: Symtoms getting worse from last ER visit Narrative: 28-year-old white female, was in the ER on with borderline findings of appendicitis versus ruptured ovarian cysts, however despite IV antibiotics in the ER on and oral Augmentin her pain has gotten worse. She returned to the ER and a CT scan was obtained which still demonstrated thickened appendix. She would prefer to be admitted and have her appendix removed. [facility] Social History household members: spouse Smoking Status: Never smoker Meds Home Medications and Allergies Home Medications Medication Instructions Recorded Confirmed Type amoxicillin 875 mg-potassium 1 tab PO BID #28 tabs 08/02/24 08/04/24 Rx clavulanate 125 mg tablet Allergies Allergy/AdvReac Type Severity Reaction Status Date / Time No Known Drug Allergies Allergy Verified 08/02/24 11:35 Review of Systems Review of Systems ROS: Yes All systems reviewed with the patient and are negative except as otherwise documented Exam Vital Signs (past 8 hours): - 08/04/24 13:26 08/04/24 16:08 08/04/24 16:08 Temperature 98.3 F Pulse Rate 74 63 Respiratory Rate 16 Blood Pressure 129/89 125/79 Pulse Oximetry 100 100 Oxygen Delivery Method Room Air 08/04/24 16:30 08/04/24 16:30 08/04/24 17:00 Temperature Pulse Rate 79 76 Respiratory Rate Blood Pressure 108/80 Pulse Oximetry 99 100 Oxygen Delivery Method 08/04/24 17:00 08/04/24 17:30 08/04/24 17:30 Temperature Pulse Rate 75 Respiratory Rate Blood Pressure 123/67 119/74 Pulse Oximetry 100 Oxygen Delivery Method 08/04/24 18:00 08/04/24 18:00 08/04/24 18:30 Temperature 97.6 F Pulse Rate 68 59 L Respiratory Rate 17 Blood Pressure 118/82 121/67 Pulse Oximetry 100 99 Oxygen Delivery Method Oxygen Delivery Method Room Air Narrative Exam Narrative: Gen: NAD, sitting comfortably in bed, appears well HEENT: Sclera are anicteric, head is normocephalic and atraumatic, trachea is midline. CV: RRR, no JVD Resp: clear to auscultation bilaterally, equal chest wall movement bilaterally Abd: soft, nontender, normoactive bowel sounds Ext: no edema, full range of motion Neuro: Cranial nerves II-XII grossly intact, no focal deficits Skin: No erythema or ecchymosis Objective Labs 08/04/24 13:47 08/04/24 13:47 Labs: Laboratory Results - last 24 hr 08/04/24 13:47 WBC 5.9 RBC 4.99 Hgb 14.7 Hct 44.6 MCV 89.3 MCH 29.4 MCHC 32.9 RDW 13.7 Plt Count 222 Neut % (Auto) 68.0 Lymph % (Auto) 22.3 L [place] % (Auto) 6.5 Eos % (Auto) 2.5 Baso % (Auto) 0.7 Neut # (Auto) 4000 Lymph # (Auto) 1300 [place] # (Auto) 400 Eos # (Auto) 100 Baso # (Auto) 0 Sodium 139 Potassium 4.0 Chloride 109 H Carbon Dioxide 23 BUN 12 Creatinine 0.73 Estimated GFR > 60 BUN/Creatinine Ratio 16.4 Glucose 92 Calcium 9.2 Total Bilirubin 0.4 AST 31 ALT 21 Alkaline Phosphatase 50 Total Protein 7.1 Albumin 4.4 Globulin 2.7 Albumin/Globulin Ratio 1.6 Lipase 41 HCG, Quant < 2.39 Assessment & Plan Assessment and plan (1) Acute appendicitis: Qualifiers: Acute appendicitis type: unspecified acute appendicitis type Qualified Code(s): K35.80 - Unspecified acute appendicitis Status: Acute Assessment & Plan narrative: Risks, benefits and alternatives to laparoscopic cholecystectomy were explained to the patient. Risks of bleeding, infection, abscess formation were all explained. Patient agrees to proceed with laparoscopic appendectomy. NPO after midnight Time-Based Coding :: [TOTAL MINUTES] spent with patient and on the chart (including review of chart, obtaining history, exam, reviewing outside data, placing orders, documenting exam and treatment plan, and counseling patient) on [DATE]. PROFEE Charge Codes Initial inpatient/observation care: [id number]
[2024-08-04] MEDS: PIPERACILLIN/TAZO 3.375 GM in SODIUM CHLORIDE 0.9% 100 ML IV (20:47)
[2024-08-05] VITALS (8 sets, daily range): BP systolic 106–120; BP diastolic 62–75; PULSE 56–103; RESP 13–20; TEMP 35.9–36.4; O2SAT 97–100
--- NOTE | 2024-08-05 | PATH_ITS ---
[facility] Accession Number: [id number] No. of containers..01 Tissue . 01 Material submitted: . appendix - APPENDIX . 01 Diagnosis: APPENDIX: Acute appendicitis. No dysplasia or malignancy identified. [facility] 08/09/2024 1351 Local . 01 Electronically signed: . Manuel Guzman MD, Pathologist NPI- [id number] . 01 Gross description: . Received in formalin with two identifiers and appendix, is a burdick vermiform appendix 8.3 cm in length by 0.7 cm in average diameter with burdick smooth serosa and mesoappendix extending out to 1.6 cm. The margin is inked blue, and the lumen contains semi-solid brown fecal material, and ranges from 0.2 to 0.7 cm in diameter. The lindo are burdick and average 0.2 cm thick with no performation or lesions identified. Microbiology Lab Manager sections to include the margin, one-half of the bisected distal tip, and cross-sections are submitted in cassette A1. ([id number]) /[facility] 08/09/2024 [facility] Local . 01 Pathologist provided ICD-10: K35.80 . 01 CPT . 897954 Specimen Comment: A courtesy copy of this report has been sent to [facility] Pathology Performed at: [address] [facility], [place], [place] [id number] MD Manuel Guzman MD Phone: [phone]
[2024-08-05] MEDS: PIPERACILLIN/TAZO 3.375 GM in SODIUM CHLORIDE 0.9% 100 ML IV (05:30)
[2024-08-05] MEDS: ACETAMINOPHEN 325 MG TABLET 975 MG PO (12:12)
[2024-08-05] MEDS: LACTATED RINGERS 1,000 ML 42 ML IV (12:12)
[2024-08-05] MEDS: CEFAZOLIN 2 GM/100 ML PREMIX 100 ML IV (13:01)
--- NOTE | 2024-08-05 13:29 | SUR.OPER ---
Supine on padded OR bed, head on pillow, safety belt at thigh, left arm padded and tucked at side. Right arm secured on padded arm board <90 degrees abduction. Legs uncrossed. Padded footboard in place. Tape over blanket to secure lower legs.
--- NOTE | 2024-08-05 13:39 | PM.OP.1 ---
Operative Date/Time/Diagnoses Date of procedure: 08/05/24 Time of procedure: 13:40 Pre-op diagnosis: acute appendicitis Post-op diagnosis: other (and ruptured right ovarian cyst) Procedure & Clinicians Procedure: Laparoscopic appendectomy Same procedure as scheduled: Yes Indications: Borderline enlarged appendix with pain not improving after a trial of outpatient antibiotics, also suspicion of ruptured ovarian cyst Surgeon: Vikas Bowie Click Yes if Unassisted: No Anesthesia Type: General Operative Notes Findings: Enlarged but not ruptured appendicitis, no signs of peritonitis Bilateral ovarian cysts with some bloody fluid over the left ovary Closure Type: primary Specimen(s): other (Appendix) Estimated Blood Loss (mL): 5 Blood products transfused: none Procedure in detail: Patient was brought to the operating room suite after consent was obtained. Time-out was performed. Patient was intubated for general anesthesia. The abdomen was prepped and draped. Total of 60 mL 0.25% Marcaine with epinephrine was used to infiltrate all trocar sites and performed bilateral transversus abdominis plane blocks. 5 mm optical trocar was placed in the left upper quadrant under optical visualization. Pneumoperitoneum was achieved. The eye was inspected. The appendix was enlarged and somewhat firm but not obviously inflamed or perforated. She had ovarian cysts and bilateral adnexa with some bloody fluid over the left adnexa. A 12 mm trocar was placed in the infraumbilical port. 5 mm trocar placed in the supraumbilical region. The appendix was grasped and retracted medially and inferiorly. A mesenteric window was created. A 45 mm blue load was fired across the base of the appendix at the cecum. White load was fired across the mesoappendix. The appendix was then placed in Endo-Catch bag and brought out through the umbilical trocar. The umbilical port was then closed with an 0 Vicryl and trans fascial suture Passer. Skin was closed 4-0 Monocryl and Dermabond. Patient tolerated procedure well was transported to PACU in stable condition for anticipated same-day discharge. Complications: none Post-operative Condition: stable Disposition: PACU Plan for aftercare: Home
--- NOTE | 2024-08-05 13:43 | PM.DS.1 ---
History of Present Illness History of Present Illness Date Patient Seen: 08/05/24 Time Patient Seen: 13:45 Chief complaint: Symtoms getting worse from last ER visit Narrative: 28-year-old white female, was in the ER on with borderline findings of appendicitis versus ruptured ovarian cysts, however despite IV antibiotics in the ER on and oral Augmentin her pain has gotten worse. She returned to the ER and a CT scan was obtained which still demonstrated thickened appendix. She would prefer to be admitted and have her appendix removed. Discharge Providers Provider Date of admission: 08/04/24 17:34 Discharge Date: 08/05/24 Primary care physician: Daisy MONDRAGON Provider Discharge provider: Vikas Bowie MD Summary Hospital Course Discharge Diagnosis: 1. Acute appendicitis 2. Ruptured left ovarian cyst Hospital Course: Patient re-presented to the ER twice in the same week with symptoms of appendicitis enlarged appendix. She also has ovarian cyst on imaging. Patient is inclined to have her appendix removed eliminate that from the differential diagnosis. Status at Discharge Cognitive/behavioral status at discharge: oriented Functional status at discharge: independent ambulation Overall status at discharge: patient is back to baseline Time Spent with Patient Time spent: Less than 30 minutes Exam Vital Signs (past 8 hours): - 08/05/24 08:00 08/05/24 12:00 Temperature 97.2 F L 97.5 F L Pulse Rate 65 79 Respiratory Rate 17 16 Blood Pressure 110/62 118/75 Pulse Oximetry 98 98 Oxygen Delivery Method Room Air Oxygen Flow Rate 0 Oxygen Delivery Method Room Air Oxygen Flow Rate 0 Narrative Exam Narrative: Gen: NAD, sitting comfortably in bed, appears well HEENT: Sclera are anicteric, head is normocephalic and atraumatic, trachea is midline. CV: RRR, no JVD Resp: clear to auscultation bilaterally, equal chest wall movement bilaterally Abd: soft, nontender, normoactive bowel sounds Ext: no edema, full range of motion Neuro: Cranial nerves II-XII grossly intact, no focal deficits Skin: No erythema or ecchymosis Objective Labs 08/04/24 13:47 08/04/24 13:47 Labs: Laboratory Results - last 24 hr 08/04/24 13:47 WBC 5.9 RBC 4.99 Hgb 14.7 Hct 44.6 MCV 89.3 MCH 29.4 MCHC 32.9 RDW 13.7 Plt Count 222 Neut % (Auto) 68.0 Lymph % (Auto) 22.3 L [place] % (Auto) 6.5 Eos % (Auto) 2.5 Baso % (Auto) 0.7 Neut # (Auto) 4000 Lymph # (Auto) 1300 [place] # (Auto) 400 Eos # (Auto) 100 Baso # (Auto) 0 Sodium 139 Potassium 4.0 Chloride 109 H Carbon Dioxide 23 BUN 12 Creatinine 0.73 Estimated GFR > 60 BUN/Creatinine Ratio 16.4 Glucose 92 Calcium 9.2 Total Bilirubin 0.4 AST 31 ALT 21 Alkaline Phosphatase 50 Total Protein 7.1 Albumin 4.4 Globulin 2.7 Albumin/Globulin Ratio 1.6 Lipase 41 HCG, Quant < 2.39 PFSH Social History household members: spouse Smoking Status: Never smoker Discharge Assessment & Plan Assessment and Plan Assessment: 1. Acute appendicitis 2. Ruptured left ovarian cyst Plan of Treatment: No further antibiotics, pain control. Discharge Plan Discharge Plan Patient Disposition: Home Provider Discharge Comment: 1. Take [id number] Tylenol every 4 hours 2. Take zjal-pmp-ruvkuof ibuprofen with meals 3 times per day. It is okay to take at the same time as Tylenol. 3. Take tizanidine for pain or spasm not relieved by the Tylenol and ibuprofen. Discharge orders & Medications Prescriptions: New tizanidine 4 mg tablet 4 mg PO Q8H PRN (Reason: muscle spasm or pain) Qty: 30 0RF Discontinued amoxicillin-pot clavulanate 875-125 mg tablet 1 tab PO BID Qty: 28 0RF Follow up/Referrals: ProviderDaisy [Primary Care Provider] - Diet/Activity/Treatments Activity: No heavy lifting pushing or pulling over 20 lb for 2 weeks. 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 Skin/Wound/Dressing Care Dressing: Glue will dry and fall off in 2-3 weeks Visit Report/Discharge Packet Instructions: DI for an Appendectomy Stand Alone Forms: Patient Portal/API, Stroke Signs & Symptoms Discharge Data Primary Care Provider: Daisy Pepper Attending Provider: Vikas Bowie Admit Date/Time: 08/04/24 17:34
[2024-08-05] MEDS: BUPIVACAINE 0.5% W/ EPI (PF) 30 ML VIAL 60 ML INJ (13:44)
[2024-08-05] MEDS: ONDANSETRON 4 MG/2 ML INJ IV (13:47)
[2024-08-05] MEDS: OXYCODONE IR 5 MG TABLET PO (13:48)
--- NOTE | 2024-08-05 14:04 | CM.DANOTE ---
B DCP Assessment note Pt is a 28yo f here with acute appendicitis. OR today with Dr. Bowie for lap appy. 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 Pt lives in [place] with partner, is [employer]. indep at baseline. Plan is for surgery today and anticipate dc home later this afternoon. Per Rn report, no obvious CM needs anticipate dc home after with partner support. P: anticipate dc home when medically stable/later today. no identified barriers to safe dc home post lap appy. CM team will continue to follow as needed PHILIPPE Marquez Discharge Planning/Care Management CM Discharge Assessment Start: 08/05/24 14:01 Freq: Status: Active Protocol: Document 08/05/24 14:01 (Rec: 08/05/24 14:03 [id number]) Discharge Planning Assessment Assigned Senior Technical Specialist PHILIPPE Moss DPOA/Assigned Designee Name Meagan Harris Contact Information [phone] Advance Directives? No History Provided By Patient Prior Living Arrangements House Household Members spouse Type of transporation used prior to Drives own vehicle admit Independent with ADL's Yes Is patient alert and oriented? Yes Discharge Plan Home Referrals Initiated None needed Review Status In Process Please Provide Date Initial DC 08/05/24 Assessment Was Performed Next Review Type Continued Stay Review
[2024-08-05] MEDS: MORPHINE 4 MG/ML INJ 3 MG IV (16:24)
[2024-08-05] MEDS: IBUPROFEN 400 MG TABLET PO (16:45)
[2024-08-05] MEDS: ACETAMINOPHEN 325 MG TABLET 650 MG PO (16:45)
--- NOTE | 2024-08-05 18:32 | PC.NURSE ---
Discharge Note Patient A&O, VSS, RA, no complaint of pain/discomfort. Discharge packet reviewed with patient, all questions/concerns addressed. PIV discontinued. Patient able to dress self and pack all belongings. Patient taken down via wheelchair to POV.
--- NOTE | 2024-08-31 13:06 | PC.NURSE ---
late entry- per RN dose of Piperacillin 08/04 started at 1751 ended at 1900 after admission to [facility]U.
== END 2024-08-05 18:30 | disposition home or self-care (01) ==
LOC: ED 15:08 → AC 17:35
PROVIDERS: Admitting Provider Surgery; Emergency Provider Emergency Medicine; Referring Provider Emergency Medicine; Visit Provider Surgery
PROC: 0DTJ4ZZ Resection of Appendix, Percutaneous Endoscopic Approach (ICD-10-PCS; CPT 44970; principal; 2024-08-05 11:30)
DX: K35.80 Unspecified acute appendicitis (principal); N83.292 Other ovarian cyst, left side; N83.291 Other ovarian cyst, right side; K66.1 Hemoperitoneum
CPT/HCPCS: 44970; 36415; 74177; 80053; 83690; 84702; 85025; 96361; 96365; 96366; 96375; 99222; 99284; 99291; G0378; J0690; J1100; J1885; J2250; J2270; J2405; J2543; J2704; J3010; J3490; Q9967